=== PATIENT | male | born 1975 | race American Indian/Alaskan Native ===

== ENCOUNTER 2017-01-21 08:21 | Emergency (ER) | payer SELFPAY ==
[2017-01-21 08:38] VITALS: BP 128/88
[2017-01-21 09:04] LABS: Eosinophils % (Auto) 4.1 % (0.0-4.3); Hematocrit 41.8 % (35.5-45.6); Mean Corpuscular HGB Conc 33 % (32-34); Mean Corpuscular Hemoglobin 29 pg (28-32); Mean Corpuscular Volume 86 fl (84-94); Red Blood Count 4.83 M/mm3 (3.65-5.03); Red Cell Distribution Width 14.8 % (13.2-15.2); White Blood Count 6.7 K/mm3 (4.5-11.0)
[2017-01-21 09:20] LABS: Anion Gap 17 mmol/L; BUN/Creatinine Ratio 11.11; Blood Urea Nitrogen 10 mg/dL (9-20); Calcium 8.8 mg/dL (8.4-10.2); Carbon Dioxide 25 mmol/L (22-30); Chloride 102.5 mmol/L (98-107); Glucose 92 mg/dL (75-100); Potassium 4.1 mmol/L (3.6-5.0); Sodium 140 mmol/L (137-145)
--- NOTE | 2017-01-21 09:37 | XRay Report ---
CHEST 2 VIEWS INDICATION: Shortness of breath. COMPARISON: None similar at this institution. FINDINGS: PA and lateral chest radiographs demonstrate normal cardiomediastinal silhouette. Clear, well-expanded lungs. No pleural effusions or CHF. Unremarkable bones. CONCLUSION: No acute disease. Thank you for the opportunity to participate in this patient's care.
[2017-01-21 09:52] LABS: INR 1.09 (0.87-1.13)
[2017-01-21 09:53] LABS: Partial Thromboplastin Time 30.9 Sec. (24.2-36.6)
[2017-01-21 10:04] LABS: Platelet Count 214 K/mm3 (140-440)
[2017-01-21] MEDS ORDERED: ULTRAM PO ONE (10:07)
[2017-01-21] MEDS ORDERED: NACL ONE (10:30)
--- NOTE | 2017-01-21 10:58 | Cat Scan Report ---
CTA CHEST INDICATION: Chest pain, elevated d-dimer, coughing blood. COMPARISON: None similar. FINDINGS: Chest CTA performed following intravenous administration of 100 cc of Omnipaque 350. Rotational MIP's also obtained. Normal heart size. No effusions. No aortic aneurysm, dissection or suspicious pulmonary arterial filling defects. No size significant adenopathy. Normal airway. Unremarkable thyroid. Clear lungs. Nonspecific air-filled distal esophageal wall prominence, not excluded for gastroesophageal reflux and/or hiatal hernia, amongst others. Images through included upper abdomen reveal no significant abnormality. Slight contrast reflux into the suprahepatic IVC and hepatic veins noted. Unremarkable bones. CONCLUSION: No CT evidence of pulmonary embolism, as described. Thank you for the opportunity to participate in this patient's care.
--- NOTE | 2017-01-21 11:18 | Emergency Department Report ---
ED Chest Pain HPI - General Chief Complaint: Chest Pain Stated Complaint: CHEST PAIN/SOB/SPITTING UP BLOOD Time Seen by Provider: 01/21/17 08:56 Source: patient Mode of arrival: Ambulatory Limitations: No Limitations - History of Present Illness Initial Comments: 41-year-old male withno significant past medical history presents hospital complaining of chest pain 2 days and pain with movement times one month. When patient bends his head downward he feels a sharp pain in the left upper chest. He complains of some mild shortness of breath last couple days. Sprain "spitting up blood" and blowing blood out of his nose anteriorly 1 month. Blood is trace and not significant. He denies fever, chills, diaphoresis, recent travel, calf pain or edema. Patient denies any medications currently and has taken ibuprofen intermittently for pain. Severity scale (0 -10): 4 - Related Data Previous Rx's Medication Instructions Recorded Last Taken Type Famotidine [Pepcid] 20 mg PO BID #30 tablet 01/21/17 Unknown Rx traMADol [Ultram 50 MG tab] 50 mg PO Q6HR PRN #20 tablet 01/21/17 Unknown Rx Allergies Allergy/AdvReac Type Severity Reaction Status Date / Time No Known Allergies Allergy Unverified 01/21/17 08:33 Heart Score - HEART Score History: Slightly suspicious EKG: Normal Age: < 45 Risk factors: No known risk factors Troponin: < normal limit HEART Score: 0 ED Review of Systems ROS: Stated complaint: CHEST PAIN/SOB/SPITTING UP BLOOD Other details as noted in HPI Comment: All other systems reviewed and negative Other: Constitutional: No fevers chills Eyes: No eye pain visual changes ENT: as per HPI Neck: Denies pain Respiratory: Denies cough wheezing Cardiovascular: As per HPI GI: Denies abdominal pain, nausea, vomiting, diarrhea : Denies dysuria Musculoskeletal: Denies back pain Skin: Denies rash, lesions, erythema Neurologic: Denies headache, numbness, weakness Psychiatric: Denies suicidal ideation, hallucinations ED Past Medical Hx - Past Medical History Previous Medical History?: No - Surgical History Additional Surgical History: RIGHT HAND SURGERY - Social History Smoking Status: Former Smoker Substance Use Type: Alcohol - Medications Home Medications: Home Medications Medication Instructions Recorded Confirmed Last Taken Type Famotidine [Pepcid] 20 mg PO BID #30 tablet 01/21/17 Unknown Rx traMADol [Ultram 50 MG tab] 50 mg PO Q6HR PRN #20 tablet 01/21/17 Unknown Rx ED Physical Exam - General Limitations: No Limitations - Other Other exam information: General: No limitations, patient is alert in no acute distress Head exam: Atraumatic, normocephalic Eyes exam: Normal appearance, pupils equal reactive to light ENT: Moist mucous membrane, normal oropharynx Neck exam: Normal inspection, full range of motion, no meningismus nontender Respiratory exam: Clear to auscultation bilateral, no wheezes, rales, crackles Cardiovascular: Normal rate and rhythm, normal heart sounds, chest wall nontender. Reproducible with movement Abdomen: Soft, nondistended, and nontender, with normal bowel sounds, no rebound, or guarding Extremity: Full range of motion normal inspection no deformity, no calf tenderness or edema Back: Normal Inspection, full range of motion, no tenderness Neurologic: Alert, oriented x3, cranial nerves intact, no motor or sensory deficit Psychiatric: normal affect, normal mood Skin: Warm, dry, intact ED Course Vital Signs 01/21/17 01/21/17 08:34 10:22 Temperature 97.4 F L Pulse Rate 64 Respiratory 16 20 Rate Blood Pressure 128/88 O2 Sat by Pulse 100 Oximetry - Reevaluation(s) Reevaluation #1: 01/21/17 11:18 Tramadol provided for pain ED Medical Decision Making - Lab Data Result diagrams: 01/21/17 08:42 01/21/17 08:42 Lab Results 01/21/17 01/21/17 01/21/17 Range/Units 08:42 08:42 08:59 WBC 6.7 (4.5-11.0) K/mm3 RBC 4.83 (3.65-5.03) M/mm3 Hgb 14.0 (11.8-15.2) gm/dl Hct 41.8 (35.5-45.6) % MCV 86 (84-94) fl MCH 29 (28-32) pg MCHC 33 (32-34) % RDW 14.8 (13.2-15.2) % Plt Count 214 (140-440) K/mm3 Lymph % (Auto) 32.9 (13.4-35.0) % [place] % (Auto) 9.7 H (0.0-7.3) % Eos % (Auto) 4.1 (0.0-4.3) % Baso % (Auto) 1.0 (0.0-1.8) % Lymph # 2.2 (1.2-5.4) K/mm3 [place] # 0.7 (0.0-0.8) K/mm3 Eos # 0.3 (0.0-0.4) K/mm3 Baso # 0.1 (0.0-0.1) K/mm3 Seg Neutrophils % 52.3 (40.0-70.0) % Seg Neutrophils # 3.5 (1.8-7.7) K/mm3 PT 14.7 (12.2-14.9) Sec. INR 1.09 (0.87-1.13) APTT 30.9 (24.2-36.6) Sec. D-Dimer 458.83 H (0-234) ng/mlDDU Sodium 140 (137-145) mmol/L Potassium 4.1 (3.6-5.0) mmol/L Chloride 102.5 (98-107) mmol/L Carbon Dioxide 25 (22-30) mmol/L Anion Gap 17 mmol/L BUN 10 (9-20) mg/dL Creatinine 0.9 (0.8-1.5) mg/dL Estimated GFR > 60 ml/min BUN/Creatinine Ratio 11.11 % Glucose 92 (75-100) mg/dL Calcium 8.8 (8.4-10.2) mg/dL Troponin T < 0.010 (0.00-0.029) ng/mL - EKG Data -: EKG Interpreted by Me (sinus bradycardia rate 56 right ventricular conduction delay) - Radiology Data Radiology results: report reviewed Chest x-ray: No acute findings CT angiogram chest: Unremarkable. Nonspecific air filled distal esophagus wall prominence, not excluded for gastroesophageal reflux or hiatal hernia amongst others. - Medical Decision Making Patient was discharged home. Pain is an ongoing and appears to be musculoskeletal. CT suggestive of possibly reflex and patient will be started on a PPI. Outpatient follow-up will be encouraged. - Differential Diagnosis musculoskeletal chest pain, anemia, coagulopathy, GERD, PE, pneumonia Critical Care Time: No Critical care attestation.: If time is entered above; I have spent that time in minutes in the direct care of this critically ill patient, excluding procedure time. ED Disposition Clinical Impression: Musculoskeletal chest pain, GERD (gastroesophageal reflux disease) Disposition: DC-01 TO HOME OR SELFCARE Is pt being admited?: No Does the pt Need Aspirin: No Condition: Stable Instructions: Thoracic Pain (ED), Gastroesophageal Reflux Disease (ED) Additional Instructions: Take the medication as prescribed. Follow-up with the clinic provided. Return if symptoms worsen Prescriptions: Famotidine [Pepcid] 20 mg PO BID #30 tablet traMADol [Ultram 50 MG tab] 50 mg PO Q6HR PRN #20 tablet PRN Reason: Pain Referrals: [facility] [Provider Group] - 3-5 Days Time of Disposition: 11:22
== END 2017-01-21 11:44 | disposition home or self-care (01) ==
LOC: ED 08:21
DX: K21.9 Gastro-esophageal reflux disease without esophagitis (principal); R07.89 Other chest pain; Z87.891 Personal history of nicotine dependence
CPT/HCPCS: 36415; 71020; 71275; 80048; 84484; 85025; 85379; 85610; 85730; 93005; 93010; 99284; Q9967

== ENCOUNTER 2017-02-17 09:21 | Emergency (ER) | payer OTHER ==
[2017-02-17 09:35] VITALS: BP 121/86
[2017-02-17 13:37] LABS: Eosinophils % (Auto) 2.6 % (0.0-4.3); Hematocrit 44.9 % (35.5-45.6); Hemoglobin 14.6 gm/dl (11.8-15.2); Mean Corpuscular HGB Conc 32 % (32-34); Mean Corpuscular Hemoglobin 29 pg (28-32); Mean Corpuscular Volume 88 fl (84-94); Platelet Count 284 K/mm3 (140-440); Red Blood Count 5.09 M/mm3 (3.65-5.03); White Blood Count 8.1 K/mm3 (4.5-11.0)
[2017-02-17 13:53] LABS: Alanine Aminotransferase 15 units/L (7-56); Albumin 4.8 g/dL (3.9-5); Albumin/Globulin Ratio 1.3 %; Alkaline Phosphatase 80 units/L (35-129); Anion Gap 22 mmol/L; Blood Urea Nitrogen 10 mg/dL (9-20); Calcium 9.5 mg/dL (8.4-10.2); Carbon Dioxide 27 mmol/L (22-30); Chloride 101.3 mmol/L (98-107); Glucose 88 mg/dL (75-100); Potassium 4.9 mmol/L (3.6-5.0); Sodium 145 mmol/L (137-145); Total Protein 8.5 g/dL (6.3-8.2)
[2017-02-17 13:55] LABS: Bilirubin,Direct < 0.2 mg/dL (0-0.2)
[2017-02-17 14:01] LABS: Bilirubin,Indirect 0.1 mg/dL
[2017-02-17 14:17] LABS: Erythrocyte Sedimentation Rate 1 mm/Hr (0-20)
[2017-02-17] MEDS ORDERED: NACL 0.9% 1000 ML 1,000 ML IV ONE (14:18)
[2017-02-17] MEDS ORDERED: BOOSTRIX IM ONE (14:43)
[2017-02-17 15:56] LABS: Creatine Kinase 202 units/L (55-170); Creatine Kinase MB 1.5 ng/mL (0.0-4.0)
[2017-02-17] MEDS ORDERED: ROCEPHIN/NS 2 GM/100 ML 2 GM/100 ML BAG IV ONE (16:00)
--- NOTE | 2017-02-17 16:21 | Emergency Department Report ---
Entered by ADEN MONSIVAIS, acting as scribe for KAYLEY GARCIA NP. <KAYLEY GARCIA - Last Filed: 02/17/17 16:20> ED Animal Bite HPI - General Chief Complaint: Animal Bite Stated Complaint: TIC BITE/BODY PAIN Time Seen by Provider: 02/17/17 11:51 Source: patient Mode of arrival: Ambulatory Limitations: No Limitations - History of Present Illness Initial Comments: This is a 41 y/o male, nontoxic, well nourished in appearance, no acute signs of distress with no pertinent PMHx presents to the ED c/o a deer tic bite to left side of chest that began 2 months ago. Rates pain an 8/10 in severity, which he describes aching in quality. Patient also c/o of intermittent chest pain that is described as sharp. Patient stated was here 2 months ago right after he was bitten by a deer tick for chest pain and was dx with GERD. Patient stated he is very certain it was a deer tic and took picture of the tic. Aggravated with movement, and alleviated with rest. Reports associated generalized body aches, but he denies fever, chills, headache or SOB, stiff neck , dizziness, abdominal pain, nausea, vomiting, numbness, and tingling. Notes the bite was initially erythematous with purulent drainage, but denies any drainage currently. NKDA. ALBERT Complaint: animal bite Onset/Timin -: month(s) Location: chest (left side of chest) Animal: other (deer tick) Animal Control Notified: No Description: immunizations unknown Mechanism: bite Pain Description: other (aching) Severity scale (0 -10): 8 Context: possible exposure while a Associated Symptoms: other (body aches). denies: erythema, discharge from wound , bleeding, fever, chills, rash, loss of consciousness, cough, headache, diaphoresis, shortness of breath - Related Data Patient Tetanus UTD: No Previous Rx's Medication Instructions Recorded Last Taken Type Doxycycline Monohydrate 100 mg PO BID #42 capsule 02/17/17 Unknown Rx [Doxycycline Monohydrate CAP] Ketorolac [Toradol] 10 mg PO Q6H PRN #20 tablet 02/17/17 Unknown Rx Allergies Allergy/AdvReac Type Severity Reaction Status Date / Time No Known Allergies Allergy Unverified 01/21/17 08:33 ED Review of Systems Comment: All other systems reviewed and negative Constitutional: denies: chills, fever Eyes: denies: eye pain, eye discharge, vision change ENT: denies: ear pain, throat pain Respiratory: denies: cough, orthopnea, shortness of breath, SOB with exertion, SOB at rest, stridor, wheezing Cardiovascular: denies: chest pain, palpitations Endocrine: no symptoms reported Gastrointestinal: denies: abdominal pain, nausea, vomiting, diarrhea Genitourinary: denies: urgency, dysuria Musculoskeletal: arthralgia (generalized body aches). denies: back pain, joint swelling, myalgia Skin: other (tic bite on left side of chest). denies: rash, lesions Neurological: denies: headache, weakness, numbness, paresthesias, confusion Psychiatric: denies: anxiety, depression Hematological/Lymphatic: denies: easy bleeding, easy bruising ED Past Medical Hx - Past Medical History Previous Medical History?: No - Surgical History Past Surgical History?: Yes Additional Surgical History: RIGHT HAND SURGERY - Social History Smoking Status: Current Every Day Smoker Substance Use Type: Alcohol - Medications Home Medications: Home Medications Medication Instructions Recorded Confirmed Last Taken Type Doxycycline Monohydrate 100 mg PO BID #42 capsule 02/17/17 Unknown Rx [Doxycycline Monohydrate CAP] Ketorolac [Toradol] 10 mg PO Q6H PRN #20 tablet 02/17/17 Unknown Rx ED Physical Exam - General Limitations: No Limitations General appearance: alert, in no apparent distress - Head Head exam: Present: atraumatic, normocephalic - Eye Eye exam: Present: normal appearance, PERRL, EOMI. Absent: scleral icterus, conjunctival injection, nystagmus, periorbital swelling, periorbital tenderness Pupils: Present: normal accommodation - ENT ENT exam: Present: normal exam, normal orophraynx, mucous membranes moist, TM's normal bilaterally, normal external ear exam - Neck Neck exam: Present: normal inspection, full ROM. Absent: tenderness, meningismus, lymphadenopathy, thyromegaly - Respiratory Respiratory exam: Present: normal lung sounds bilaterally. Absent: respiratory distress, wheezes, rales, rhonchi, stridor, chest wall tenderness, accessory muscle use, decreased breath sounds - Cardiovascular Cardiovascular Exam: Present: regular rate, normal rhythm, normal heart sounds. Absent: bradycardia, tachycardia, irregular rhythm, systolic murmur, diastolic murmur, rubs, gallop - GI/Abdominal GI/Abdominal exam: Present: soft, normal bowel sounds. Absent: distended, tenderness, guarding, rebound, rigid - Rectal Rectal exam: Present: deferred - Extremities Exam Extremities exam: Present: normal inspection, full ROM, normal capillary refill. Absent: tenderness, pedal edema, joint swelling, calf tenderness - Back Exam Back exam: Present: normal inspection, full ROM. Absent: tenderness, CVA tenderness (R), CVA tenderness (L), muscle spasm, paraspinal tenderness, vertebral tenderness, rash noted - Neurological Exam Neurological exam: Present: alert, oriented X3, CN II-XII intact, normal gait, reflexes normal. Absent: motor sensory deficit - Psychiatric Psychiatric exam: Present: normal affect, normal mood - Skin Skin exam: Present: warm, dry, intact, other (hyperpigmented healed tic bite on left side of chest with no surrounding erythema, fluntuance, induration, or drainage present). Absent: rash, cyanosis ED Course Vital Signs 02/17/17 09:32 Temperature 98.8 F Pulse Rate 75 Respiratory 20 Rate Blood Pressure 121/86 O2 Sat by Pulse 99 Oximetry - Reevaluation(s) Reevaluation #1: 02/17/17 14:50 Patient is able to speak in full sentences with no signs of distress noted. - Consultations Consultation #1: 02/17/17 14:51 Patient was consulted with Dr. Pizano who examined/assessed patient himself. Agrees to patient to be admitted for Lyme disease/carditis. Consultation #2: 02/17/17 15:05 Patient was signed out to Dr. Pizano as he states he will d/c the patient. ED Disposition Clinical Impression: Lyme disease Chest pain Qualifiers: Chest pain type: other chest pain Qualified Code(s): R07.89 - Other chest pain ; R07.8 - Other chest pain Disposition: - TO HOME OR SELFCARE Condition: Stable Instructions: Chest Pain (ED) Prescriptions: Doxycycline Monohydrate [Doxycycline Monohydrate CAP] 100 mg PO BID #42 capsule Ketorolac [Toradol] 10 mg PO Q6H PRN #20 tablet PRN Reason: Pain Referrals: [facility],MD [Primary Care Provider] - 3-5 Days ED Medical Decision Making - Lab Data Result diagrams: 02/17/17 13:22 02/17/17 13:22 <ELROY BARBOZA - Last Filed: 02/21/17 22:26> ED Disposition Is pt being admited?: No Does the pt Need Aspirin: No ED Medical Decision Making - Lab Data Result diagrams: 02/17/17 13:22 02/17/17 13:22 This documentation as recorded by the YODIT adams JASMINE,accurately reflects the service I personally performed and the decisions made by ,KAYLEY GARCIA, FILI.
[2017-02-19 13:49] LABS: Lyme Disease AB to Progressive Has been added
== END 2017-02-17 16:31 | disposition home or self-care (01) ==
LOC: ED 09:21
DX: S20.369A Insect bite (nonvenomous) of unspecified front wall of thorax, initial encounter (principal); A69.20 Lyme disease, unspecified; F17.200 Nicotine dependence, unspecified, uncomplicated; W64.XXXA Exposure to other animate mechanical forces, initial encounter; Y93.9 Activity, unspecified; Y92.9 Unspecified place or not applicable; Y99.9 Unspecified external cause status
CPT/HCPCS: 36415; 80048; 80074; 82550; 82553; 84484; 85025; 85652; 87476; 90471; 90715; 93005; 93010; 96361; 96365; 99284; J0696; J7030

== ENCOUNTER 2018-09-27 15:15 | Emergency (ER) | payer SELFPAY ==
--- NOTE | 2018-09-27 15:46 | Emergency Department Report ---
Chief Complaint: Extremity Injury, Upper Stated Complaint: R FINGER INJURY Time Seen by Provider: 09/27/18 15:44 - HPI History of Present Illness: This is a 43 y.o. male that presents to ER for evaluation of right 4th nail bed. Patient states the nail came off 2 weeks ago. - Exam Vital Signs: Vital Signs 09/27/18 15:42 Temperature 97.8 F Pulse Rate 70 Respiratory 18 Rate Blood Pressure 118/79 O2 Sat by Pulse 99 Oximetry MSE screening note: Focused history and physical exam performed. Due to findings the following was ordered: ACC for evaluation ED Disposition for MSE Condition: Stable
== END 2018-09-27 15:44 | disposition left against medical advice (07) ==
LOC: ED 15:15